=== PATIENT | female | born 1985 | race Caucasian/White ===

== ENCOUNTER 2021-01-10 09:00 | Outpatient (RCR) | payer SELFPAY ==
--- NOTE | 2020-12-28 08:52 | HP.OTEVAL ---
Patient's Visit Information ALISSA HOOKER is a 35 year old F, referred to Occupational Therapy by KWESI Gutierrez, with a diagnosis of L index finger sprain. Date of Evaluation: 12/28/20 Occupational Therapist: Saba Purdy - Subjective Pt presents to initial OT. Pt states she smashed her finger in a door and hit the tip of her finger. She wasn't able to bend it much w/o pain which happened 11/30. Pt states since then she has been able to play her violin and put pressure on it but she doesn't feel like it's back to normal quite yet. She denies n/t but it just feels stiff. 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 - ADLs Kitchen: Chop with knife, Take dish out of oven Comments: Pt is right handed so she compensates w/ Right hand much and more cautious with L hand. - Pain L index finger 0 Pain Intensity Range: 0, 3 - ROM ROM Comments: Pt able to make tight composite fist comparable to dominant hand. No ROM concerns but patient states that it feels stiff when she moves it. - Strength [employer] Employee: R 55# L 54# w/ pain in middle of hand Lateral Pinch: R 12# L 12# Tripod Pinch: R 10# L 8 with wrist pain - Edema Other: no edema present this date - Sensation Sensation Comments: denies n/t - Nine Hole Peg Right: 22.1 Left: 22.9 - Quick DASH-Disab of Arm,Shoulder& Hand Quick DASH Score: 9.0900 - Goals Goal:: Pt will increase tripod pinch strength of Left hand to equivalent of R hand (without pain) in order to resume prior tasks. Goal:: Pt will report a decrease of stiffness/pain to no more than a 1/10 at worse during daily activities. Goal:: Pt will report improved ability to play violin with speed and accuracy w/o pain. Goal:: Pt will demo understanding and independence of education and HEP. - Rehabilitation General Assessment: Pt presents to OT for initial evaluation after having shut her finger in a door. Pt has blackening of proximal nail bed that PA had stated would eventually fall off. Likely pt's pain and pressure feeling is associated with the nail bed. Pt does tend to fatigue quickly when completing strengthening tasks- pt expressed interest in coming back to OT for strengthening program and to increase coordination speed in order to resume work and hobbies. Pt would benefit from cont. therapy services for 2x/week for 2-3 weeks for strengthening, pain management and fine motor coordination/dexterity speed. Rehabilitation Potential: Excellent - Anticipated Interventions A/AAROM/PROM, Strengthening, Triggerpoint Release, Modalities, Fine Motor Coord/[place], Home Program - Visit Plan Frequency: 2x /Week Duration: 3 Weeks General Plan: Pt would benefit from cont. therapy services to address concerns regarding strength, FM coordination, speed, activity tolerance in order for pt to resume prior functional tasks; 2x/week for 3 weeks. TEXT: Thank you for the opportunity to evaluate your patient. For Medicare and Medicare HMO plans, please review the plan of care and approve it. It will need to be FAXED BACK to us at [phone] for Medicare purposes. Please let me know if there are questions or concerns regarding this plan of care. Physician Signature: Date:
--- NOTE | 2021-07-06 09:44 | HP.OT.NRP ---
ALISSA HOOKER was seen in my office for initial evaluation on 12/28/20. The following Plan of Care was established for this patient: Initial Frequency: 2x /Week Initial Duration: 3 Weeks Plan: cont POC Anticipated Interventions: A/AAROM/PROM, Strengthening, Triggerpoint Release, Modalities, Fine Motor Coord/[place], Home Program This patient was last seen in our office 01/10/21. Pertinent comments regarding their Occupational therapy will appear below: pt was seen for 2 OT visits- no further apts are scheduled and due to time lapse in services pt is d/c. At this point I will be discontinuing this patient from occupational therapy. I would be happy to see this patient again in the future if found appropriate by the physician. Thank you! Jessica Correa, OTR/L, CHT
== END 2021-01-10 19:00 | disposition home or self-care (01) ==
LOC: OT 09:00
PROVIDERS: PCP Physician Assistant; Referring Provider Physician Assistant Surgical; Visit Provider Physician Assistant Surgical
DX: S63.69 Other sprain of other and unspecified finger(s) (principal); X58.XXXD Exposure to other specified factors, subsequent encounter
CPT/HCPCS: 97110; 97165